=== PATIENT | female | born 1990 | race Caucasian/White ===

== ENCOUNTER 2019-10-16 05:05 | Day surgery (SDC) | payer BC, OTHER ==
[2019-10-13 14:33] VITALS: BMI 30.6
[2019-10-16] MEDS ORDERED: PROPOFOL 20 ML ONE ×2 (11:53→12:50)
[2019-10-16] MEDS ORDERED: MIDAZOLAM HCL 2 MG/2 ML SINGLE DOSE VIAL ONE (11:53)
[2019-10-16] MEDS ORDERED: ceFAZolin SODIUM 1 GM VIAL IVPB ONE (12:56)
[2019-10-16] MEDS ORDERED: ONDANSETRON 4 MG/2 ML VIAL IVPUSH PRN (13:23)
[2019-10-16] MEDS ORDERED: oxyCODONE HCL 5 MG TABLET PO PRN (13:23)
[2019-10-16] MEDS ORDERED: LACTATED RINGERS SOLUTION 1,000 ML IV SCH (13:30)
--- NOTE | 2019-10-16 13:47 | HP ---
History & Physical Update - History History: No Change - Physical Physical: No Change - Assessment Assessment: No Change - Plan Plan: No Change
--- NOTE | 2019-10-16 13:49 | OP ---
Operative Note - Note: Operative Date: 10/16/19 Pre-Operative Diagnosis: Missed Operation: Suction DC Findings: 8 weeks uterus Post-Operative Diagnosis: Same as Pre-op Surgeon: Aide Mendoza Anesthesia: General Estimated Blood Loss (mls): 40
[2019-10-16 14:33] VITALS: TEMP 98.1
[2019-10-16] MEDS ORDERED: oxyCODONE HCL 5 MG TABLET ONE (14:33)
[2019-10-16] MEDS ORDERED: oxyCODONE HCL 5 MG TABLET PO ONE (14:36)
[2019-10-16 15:12] VITALS: BP 129/69; PULSE 84
--- NOTE | 2019-10-16 15:23 | OP ---
DATE OF OPERATION: 10/16/2019 PREOPERATIVE DIAGNOSIS: Missed . OPERATION: Suction dilation and curettage. POSTOPERATIVE DIAGNOSIS: Missed . SURGEON: Aide Mendoza MD ESTIMATED BLOOD LOSS: 40 mL. PROCEDURE: Patient was taken to the operating room, placed in the dorsal lithotomy position, prepped and draped in the usual sterile fashion. A timeout was performed in accordance with hospital regulation. Speculum was placed in the vagina, anterior lip of the cervix grasped with single-tooth tenaculum. Cervix was then dilated to accommodate a number 8 suction curette. Suction curettage was then performed, followed by sharp curettage. All contents were submitted to Pathology for chromosomal analysis. Estimated blood loss 40 mL. All instruments were then removed. Patient tolerated procedure well, was taken to recovery in stable condition. AIDE MENDOZA M.D. JOSÉ LUIS/[id number]
--- NOTE | 2019-10-17 15:01 | PATH ---
Surgical Pathology Report Patient Name: KARRI ALFRED Med. Rec. #: [id number] /Age/Gender: 1990 (Age: 29) / F Account: [id number] Location: [facility] Taken: 10/16/2019 Received: 10/16/2019 Reported: 10/17/2019 Physicians: Aide Mendoza M.D. 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 CHROMOSOMAL STUDIES ARE PENDING AND WILL BE REPORTED SEPARATELY AN ADDENDUM. Electronically Signed Jo Edwards M.D. Gross Description Received fresh labeled "products of conception," is an 8.5 x 7.5 x 1.0 cm aggregate of currie-red soft tissue fragments. Villous tissue is identified. No somatic tissue is identified. A medical service representative portion is placed in RPMI solution and sent for chromosomal studies. An additional medical service representative portion is submitted in one cassette. /10/16/2019 saudi/10/16/2019
== END 2019-10-16 15:00 | disposition home or self-care (01) ==
LOC: JASU-SURG 05:05
PROVIDERS: ATTEND Obstetrics & Gynecology
PROC: 10D17ZZ Extraction of Products of Conception, Retained, Via Natural or Artificial Opening (ICD-10-PCS; principal; 2019-10-16 10:30)
DX: O02.1 Missed abortion (principal)
CPT/HCPCS: 86850; 86900; 86901; 88305-TC; 94760